=== PATIENT | female | born 2000 | race Caucasian/White ===

== ENCOUNTER 2023-09-14 17:53 | Emergency (ER) | payer BC, SELFPAY ==
[2023-09-14 17:55] VITALS: BP 146/83
--- NOTE | 2023-09-14 18:46 | ED.GENMED ---
History of Present Illness
General
Chief Complaint: Foreign Body Removal
Time Seen by Provider: 09/14/23 18:05
Travel History
Have you had any contact with someone who has COVID-19?: No
Do you have any symptoms of coronavirus? Fever > 100 degrees, chills, cough, shortness of breath, sore throat, loss of taste or smell, muscle aches, or headache?: No
History of Present Illness
History of Present Illness:
22-year-old female presents to the emergency department for evaluation of a sensation of a foreign body in the throat. She feels that a piece of celery is stuck. She is able to talk, swallow, and breathe without difficulty
Review of Systems
Review of Systems
Allergies reviewed?: Yes
All Other Systems: ROS reviewed and negative except as documented in HPI and ROS
Phy Exam
Physical Exam
Physical Exam:
GEN: Well appearing, NAD, WDWN
HEENT: Oral mucosa moist, no scleral icterus, No obvious oropharyngeal foreign bodies, examination performed with laryngeal mirror and no obvious foreign bodies identified
Cardiac: Regular rate
Lung: No respiratory distress, no tachypnea
MSK: No gross deformity or injuries
Skin: Good color, no pallor or jaundice, no rashes
Neuro: AO x3, moves all extremities freely
Psych: Calm, cooperative
Course
Orders/Labs/Results
Orders:
Orders
09/14/23 18:47
Viscous Lidocaine 2% [Xylocaine Viscous Cup] 15 ml PO NOW STA
Vital Signs
Initial and Last Documented VS:
Initial Vital Signs
Temp Pulse Resp BP Pulse Ox
98.4 F 105 16 146/83 100
09/14/23 17:55 09/14/23 17:55 09/14/23 17:55 09/14/23 17:55 09/14/23 17:55
Last Documented Vital Signs
Temp Pulse Resp BP Pulse Ox
98.4 F 105 16 146/83 100
09/14/23 17:55 09/14/23 17:55 09/14/23 17:55 09/14/23 17:55 09/14/23 17:55
MDM/Problems Addressed
MDM/Problems Addressed:
Likely mucosal injury however cannot rule out foreign body is no respiratory distress and no swallowing difficulty, recommend outpatient ENT follow-up if symptoms do not resolve
*Critical Care Note
Total Time (30-74mins, 75-104mins- exclusive of procedures): Not Applicable
ED Attending Note
-
Portions of this chart may have been created with voice recognition software.� Occasional wrong word or��sound alike� substitutions may have occurred due to the inherent limitations of voice recognition software.
Discharge Plan
Departure
Patient Disposition: Home (Routine Discharge)
Date of Disposition: 09/14/23
Time of Disposition: 19:07
Patient with high blood pressure during this ER visit?: No
Discharge Problem:
Possible foreign body in throat
Referrals:
Liudmila Valencia, [Family Provider] -
Sebas Stoll MD [Active] -
Activity Restrictions/Additional Instructions:
If you begin coughing or having difficulty swallowing, return to the ER
If you have persistent symptoms for >48 hours, follow up with ENT
Interventions
Interventions:
*Risk Screen - Suicide Last Done: 09/14/23 19:38
*General Assessment Last Done: 09/14/23 19:38
*Neglect/Abuse Screening Last Done: 09/14/23 19:38
*ED COVID-19 Vaccine History Last Done: 09/14/23 17:58
*Nursing Disposition Last Done: 09/14/23 19:38
Discharge Date and Time
Discharge Date/Time: 09/14/23 19:39
Print Language: [place]
[2023-09-14] MEDS: XYLOCAINE VISCOUS CUP 15 ML PO (19:02)
== END 2023-09-14 19:39 | disposition home or self-care (01) ==
LOC: EMR 17:53
PROVIDERS: EMERGENCY PHYSICIAN Student in an Organized Health Care Education/Training Program; FAMILY PHYSICIAN Internal Medicine
DX: R09.A2 Foreign body sensation, throat (principal)
CPT/HCPCS: 99283